=== PATIENT | female | born 1945 | race Hispanic/Latino ===

== ENCOUNTER 2017-08-25 15:15 | Observation (INO) | payer MEDICARE, OTHER ==
[~2017-08-25] VITALS: Ht 152.4 cm; Wt 64.9 kg
[~2017-08-25 15:15] MED LIST: FENO54TA6 PO; GLIM4TAB3 PO; SIMV40TA5 PO
[2017-08-25] MEDS ORDERED: ENOXAPARIN SODIUM 30 MG/0.3 ML SQ SCH (18:00)
[2017-08-25] MEDS ORDERED: POTASSIUM CHLORIDE 20MEQ/100ML 100 ML IV PRN (18:15)
[2017-08-25] MEDS ORDERED: LIDOCAINE HCL-MPF 1% 2ML VIAL IJ PRN (18:15)
[2017-08-25] MEDS ORDERED: POTASSIUM CHLORIDE 20 MEQ ERTAB PO PRN (18:15)
[2017-08-25] MEDS ORDERED: POTASSIUM CHLORIDE 10% ELIXIR 20 MEQ/15 ML UDCUP PO PRN (18:15)
[2017-08-25] MEDS ORDERED: MORPHINE SULFATE 2 MG/ML 1ML SYG IVP PRN (18:15)
[2017-08-25] MEDS: INSULIN R PO SS1 SQ SCH (21:00)
[2017-08-26 00:20] VITALS: BP 146/77
[2017-08-26] MEDS ORDERED: AMLO5TAB2 PO (00:42)
[2017-08-26] MEDS ORDERED: METF-527 PO (00:42)
[2017-08-26] MEDS ORDERED: REPA2TAB8 PO (00:42)
[2017-08-26] MEDS ORDERED: EMPA25TA PO (00:42)
[2017-08-26 03:55] VITALS: BP 136/71
[2017-08-26 04:49] LABS: HEMATOCRIT 34.6 % (36-48); MEAN CORPUSCULAR HEMOGLOBIN 20.3 pg (27.0-33.0); MEAN CORPUSCULAR VOLUME 63.4 fL (79-99); PLATELET COUNT (AUTO) 249 K/uL (130-400); RED BLOOD CELL COUNT(AUTO) 5.46 MIL/uL (4.00-5.50); RED CELL DISTRIBUTION WIDTH 15.5 % (11.0-15.5); WHITE BLOOD COUNT (AUTO) 12.1 K/uL (4.8-10.8)
[2017-08-26 05:03] LABS: ALBUMIN 2.9 g/dL (3.5-5.0); BILIRUBIN,TOTAL 0.5 mg/dL (0.2-1.0); CREATININE 0.9 mg/dL (0.5-1.5); MAGNESIUM 1.6 mg/dL (1.80-2.40); POTASSIUM 3.4 mmol/L (3.5-5.1); TOTAL PROTEIN, SERUM 6.6 g/dL (6.0-8.3)
[2017-08-26] MEDS: INSULIN R PO SS1 SQ SCH ×2 (05:49→11:30)
[2017-08-26] MEDS ORDERED: GADOBENATE DIMEGLUMINE 10 ML IV ONE (08:11)
[2017-08-26 08:52] VITALS: BP 146/73
[2017-08-26 11:45] VITALS: BP 135/73
== END 2017-08-26 17:49 | disposition home or self-care (01) ==
LOC: EDH 15:15 → EDHIP 17:10 → 4BH 08-26 00:24
PROVIDERS: ADMIT Internal Medicine Infectious Disease; ATTEND Internal Medicine Infectious Disease
DX: S76.112A Strain of left quadriceps muscle, fascia and tendon, initial encounter (principal); E11.9 Type 2 diabetes mellitus without complications; E78.5 Hyperlipidemia, unspecified; I10 Essential (primary) hypertension; M19.90 Unspecified osteoarthritis, unspecified site; W19.XXXA Unspecified fall, initial encounter; Y93.89 Activity, other specified; Y92.89 Other specified places as the place of occurrence of the external cause; Y99.8 Other external cause status; Z83.3 Family history of diabetes mellitus; Z87.01 Personal history of pneumonia (recurrent)
CPT/HCPCS: 36415; 73562; 73723; 80053; 82948 ×2; 83735; 85027; 99285; A9577; G0378 ×25

== ENCOUNTER 2019-01-01 13:00 | Observation (INO) | payer OTHER ==
[~2019-01-01] VITALS: Ht 139.7 cm; Wt 61.9 kg
[~2019-01-01 13:00] MED LIST changes: +AMLO5TAB9 PO; +EMPA25TA PO; -FENO54TA6 PO; -GLIM4TAB3 PO; +METF-527 PO; +REPA2TAB8 PO
[2019-01-01 13:38] LABS: BASOPHILS % (AUTO) 0.5 % (0.0-5.0); EOSINOPHILS % (AUTO) 2.6 % (0.0-8.0); HEMATOCRIT 35.4 % (36-48); MEAN CORPUSCULAR HEMOGLOBIN 20.4 pg (27.0-33.0); MEAN CORPUSCULAR HGB CONC 31.3 g/dL (32.0-36.0); MEAN CORPUSCULAR VOLUME 65.1 fL (79-99); MONOCYTES % (AUTO) 4.4 % (3.0-13.0); NEUTROPHILS % (AUTO) 46.5 % (40.0-77.0); PLATELET COUNT (AUTO) 228 K/uL (130-400); RED BLOOD CELL COUNT(AUTO) 5.44 MIL/uL (4.00-5.50); RED CELL DISTRIBUTION WIDTH 15.9 % (11.0-15.5); WHITE BLOOD COUNT (AUTO) 13.8 K/uL (4.8-10.8)
[2019-01-01 13:45] LABS: CREATININE 1.1 mg/dL (0.5-1.5)
[2019-01-01 13:48] LABS: INR 0.92 (0.85-1.15); PARTIAL THROMBOPLASTIN TIME 26.6 SEC (26.3-35.5); PROTHROMBIN TIME 9.7 SEC (9.6-11.6)
[2019-01-01 13:50] LABS: ALBUMIN 3.2 g/dL (3.5-5.0); BILIRUBIN,TOTAL 0.5 mg/dL (0.2-1.0); TOTAL PROTEIN, SERUM 6.7 g/dL (6.0-8.3)
[2019-01-01] MEDS ORDERED: DEXTROSE 5%-WATER 500 ML IV ONE (14:56)
[2019-01-01 23:12] VITALS: BP 124/64
[2019-01-01] MEDS ORDERED: SIMV20TA6 PO (23:40)
[2019-01-01] MEDS ORDERED: LIRA0.6P2 SQ (23:40)
[2019-01-01] MEDS ORDERED: INSU100I21 SQ (23:40)
[2019-01-01] MEDS ORDERED: KRIL1CAP18 PO (23:40)
[2019-01-01] MEDS ORDERED: OLME1TAB44 PO (23:40)
[2019-01-01] MEDS ORDERED: AMLO5TAB9 PO (23:40)
[2019-01-02] MEDS ORDERED: DEXTROSE 5%-WATER 1,000 ML IV ONE (00:09)
[2019-01-02 04:00] VITALS: BP 109/60
[2019-01-02 08:00] VITALS: BP 122/64
[2019-01-02 12:00] VITALS: BP 115/61
[2019-01-02 16:00] VITALS: BP 117/63
--- NOTE | 2019-01-02 16:56 | NUR ---
INITIAL: Met w pt and family this afternoon to discuss dcp. Per pt she lives w her dtr Lesley. Prior to admission was using a walker for ambulation and is independent w aDLs. Pt mentions that she is able to self inject her insulin and manages her medications. Per pt she owns a wc if needed. Pt states that she feels safe and comfortable to return home at ok. CM to continue to follow and wait for Md recommendations. Addendum: 01/02/19 at 1658 by DOMENIC HAWKINS Amended: Links added.
--- NOTE | 2019-01-02 18:30 | NUR ---
DISCHARGED NOW USING TEACH BACK.DC INST. ON WHICH MEDS TO STOP FOR NOW GIVEN. PT. AND FAMILY VERBALIZE UNDERSTANDING. WILL CALL DR MENDOZA IN AM FOR A ONE WEEK APPT. SALINE LOC REMOVED.
== END 2019-01-02 18:25 | disposition home or self-care (01) ==
LOC: EDH 13:00 → EDHIP 14:34 → 3BH 22:41
PROVIDERS: ADMIT Internal Medicine; ATTEND Internal Medicine
DX: E11.649 Type 2 diabetes mellitus with hypoglycemia without coma (principal); E11.65 Type 2 diabetes mellitus with hyperglycemia; T38.3X5A Adverse effect of insulin and oral hypoglycemic [antidiabetic] drugs, initial encounter; R41.82 Altered mental status, unspecified; I10 Essential (primary) hypertension; R94.31 Abnormal electrocardiogram [ECG] [EKG]; E78.5 Hyperlipidemia, unspecified; Z79.84 Long term (current) use of oral hypoglycemic drugs; Z79.899 Other long term (current) drug therapy; X58.XXXA Exposure to other specified factors, initial encounter; Y92.89 Other specified places as the place of occurrence of the external cause
CPT/HCPCS: 36415; 80053; 82550; 82948 ×8; 84484; 85025; 85610; 85730; 93005; 96365; 96366; 99284; G0378 ×9; J7060; J7070

== ENCOUNTER → 2023-05-29 | Outpatient (CLI) | payer OTHER ==
[~2023-05-29] MED LIST changes: +AMLO-257 PO; -AMLO5TAB9 PO; -EMPA25TA PO; +INSU100I22 SQ; +KRIL1CAP18 PO; +LIRA0.6P2 SQ; +OLME-11 PO; -REPA2TAB8 PO; +SIMV-43 PO; -SIMV40TA5 PO
== END | disposition home or self-care (01) ==
LOC: RAH 16:12
PROVIDERS: ATTEND Internal Medicine
DX: M17.12 Unilateral primary osteoarthritis, left knee (principal); M25.862 Other specified joint disorders, left knee; M25.852 Other specified joint disorders, left hip; M79.605 Pain in left leg
CPT/HCPCS: 73552; 73562